=== PATIENT | male | born 1980 | race Caucasian/White ===

== ENCOUNTER 2024-03-04 11:00 | Emergency (ER) | payer BC ==
[2024-03-04 11:06] VITALS: RESP 18
--- NOTE | 2024-03-04 11:53 | ED ---
General Adult HPI - General Chief complaint: Recheck/Abnormal Lab/Rx Stated complaint: Post op complications, lump Time Seen by Provider: 03/04/24 11:11 Source: patient, RN notes reviewed Mode of arrival: ambulatory Limitations: no limitations - History of Present Illness Initial comments: 43-year-old male presents emergency department chief complaint of left-sided scrotal pain. Patient states he had a vasectomy on Tuesday. He states that he has been resting, icing and following his instructions but still felt left-sided pain ever since the procedure he states it is more swollen denies any drainage no fevers or chills no dysuria no other complaints. - Related Data Home Medications Medication Instructions Recorded Confirmed No Known Home Medications 02/04/14 02/04/14 Allergies Allergy/AdvReac Type Severity Reaction Status Date / Time No Known Allergies Allergy Verified 03/04/24 11:06 Review of Systems ROS Statement: Those systems with pertinent positive or pertinent negative responses have been documented in the HPI. ROS Other: All systems not noted in ROS Statement are negative. Past Medical History Past Medical History: No Reported History History of Any Multi-Drug Resistant Organisms: None Reported Past Surgical History: No Surgical Hx Reported Past Psychological History: No Psychological Hx Reported Smoking Status: Current every day smoker Past Alcohol Use History: Occasional Past Drug Use History: None Reported General Exam Limitations: no limitations General appearance: alert, in no apparent distress Head exam: Present: atraumatic, normocephalic, normal inspection Respiratory exam: Present: normal lung sounds bilaterally. Absent: respiratory distress, wheezes, rales, rhonchi, stridor Cardiovascular Exam: Present: regular rate, normal rhythm, normal heart sounds. Absent: systolic murmur, diastolic murmur, rubs, gallop, clicks GI/Abdominal exam: Present: soft, normal bowel sounds. Absent: distended, tenderness, guarding, rebound, rigid exam: Present: other (Significant swelling left testicular region, tenderness with palpation) Course Vital Signs 03/04/24 03/04/24 11:03 13:01 Temperature 98 F 98.4 F Pulse Rate 89 76 Respiratory 18 18 Rate Blood Pressure 148/80 132/68 O2 Sat by Pulse 99 99 Oximetry Medical Decision Making - Medical Decision Making Was pt. sent in by a medical professional or institution (, PA, [facility], urgent care, hospital, or senior living...) When possible be specific @ -No Did you speak to anyone other than the patient for history (EMS, parent, family, police, friend...)? What history was obtained from this source @ -No Did you review nursing and triage notes (agree or disagree)? Why? @ -I reviewed and agree with nursing and triage notes Were old charts reviewed (outside hosp., previous admission, EMS record, old EKG, old radiological studies, urgent care reports/EKG's, senior living records)? Report findings @ -No old charts were reviewed Differential Diagnosis (chest pain, altered mental status, abdominal pain women, abdominal pain men, vaginal bleeding, weakness, fever, dyspnea, syncope, headache, dizziness, GI bleed, back pain, seizure, CVA, palpatations, mental health, musculoskeletal)? @ -Scrotal hematoma, postoperative swelling, hydrocele, varicocele none EKG interpreted by me (3pts min.). @ -As above X-rays interpreted by me (1pt min.). @ -None done CT interpreted by me (1pt min.). @ -None done U/S interpreted by me (1pt. min.). @ -Ultrasound scrotum shows left sided hematoma What testing was considered but not performed or refused? (CT, X-rays, U/S, labs)? Why? @ -None What meds were considered but not given or refused? Why? @ -None Did you discuss the management of the patient with other professionals (melva vang i.e. , PA, [facility], lab, RT, psych nurse, social service technician, customer sales consultant, teacher, medical scientific officer, shoe caser)? Give summary @ -No Was smoking cessation discussed for >3mins.? @ -No Was critical care preformed (if so, how long)? @ -No Were there social determinants of health that impacted care today? How? (Homelessness, low income, unemployed, alcoholism, drug addiction, transportation, low edu. Level, literacy, decrease access to med. care, [facility], rehab)? @ -No Was there de-escalation of care discussed even if they declined (Discuss DNR or withdrawal of care, Hospice)? DNR status @ -No What co-morbidities impacted this encounter? (DM, HTN, Smoking, COPD, CAD, Cancer, CVA, ARF, Chemo, Hep., AIDS, mental health diagnosis, sleep apnea, morbid obesity)? @ -None Was patient admitted / discharged? Hospital course, mention meds given and route, prescriptions, significant lab abnormalities, going to OR and other pertinent info. @Discharge patient presented for scrotal pain, swelling status post vasectomy. Patient has a postoperative hematoma patient will follow-up with urology. Undiagnosed new problem with uncertain prognosis? @ -No Drug Therapy requiring intensive monitoring for toxicity (Heparin, Nitro, Insulin, Cardizem)? @ -No Were any procedures done? @ -No Diagnosis/symptom? @ -Scrotal hematoma Acute, or Chronic, or Acute on Chronic? @ -Acute] Uncomplicated (without systemic symptoms) or Complicated (systemic symptoms)? @ -Uncomplicated Side effects of treatment? @ -No Exacerbation, Progression, or Severe Exacerbation? @ -No Poses a threat to life or bodily function? How? (Chest pain, [place], [place], pneumonia, PE, COPD, DKA, ARF, appy, cholecystitis, CVA, Diverticulitis, Homicidal, Suicidal, threat to staff... and all critical care pts) @ -No Disposition Clinical Impression: Scrotal hematoma Disposition: HOME SELF-CARE Condition: Stable Instructions (If sedation given, give patient instructions): Hematoma (ED) Additional Instructions: Please return to the Emergency Department if symptoms worsen or any other concerns. Is patient prescribed a controlled substance at d/c from ED?: No Referrals: None,Stated [Primary Care Provider] - 1-2 days Time of Disposition: 12:48
--- NOTE | 2024-03-04 12:12 | US ---
EXAMINATION TYPE: US scrotum with doppler. Grayscale and color Doppler Duplex imaging performed of payton webb scrotum. DATE OF EXAM: 03/04/2024 COMPARISON: NONE CLINICAL INDICATION: Male, 43 years old with history of pain; Vasectomy on Tuesday. Patient states al most after the procedure, he has felt a lump superior to left teste. Pain on left that has increased since procedure. EXAM MEASUREMENTS: TESTICLES: Right Testicle: 4.7 x 4.2 x 2.5 cm Left Testicle: 4.0 x 4.4 x 2.5 cm EPIDIDYMIS HEAD: Right Epididymis: 0.8 x 1.0 x 0.8 cm, cyst seen = 0.3 x 0.5 x 0.3 cm Left Epididymis: 0.8 x 0.9 x 1.1 cm Doppler performed to assess for testicular vascularity; good bilateral color flow and waveforms are s een. There is no evidence of testicular torsion. Presence of hydroceles: Bilateral Presence of varicoceles: No Area of concern: near incision site, subcutaneous hypoechoic area seen = 0.8 x 0.8 x 0.5 cm No increased surrounding vascularity to suggest abscess. IMPRESSION: 1. Heterogenous tissue in the area of palpable abnormality near incision site possibly representing resolving hematoma and correlate for superimposed infection. Consider short-term follow-up to ensure resolution in 6-8 weeks. 2. Appropriate arterial and venous spectral waveforms to the testes. 3. No evidence for intratesticular mass. 4. Complex bilateral hydroceles.
[2024-03-04 13:07] VITALS: BP 132/68; PULSE 76; TEMP 98.4
== END 2024-03-04 13:02 | disposition home or self-care (01) ==
LOC: EC 11:00
DX: S30.22XA Contusion of scrotum and testes, initial encounter (principal); F17.200 Nicotine dependence, unspecified, uncomplicated; Z98.52 Vasectomy status; X58.XXXA Exposure to other specified factors, initial encounter
CPT/HCPCS: 76870; 93975; 99283